=== PATIENT | female | born 1955 | race Caucasian/White ===

== ENCOUNTER 2017-07-16 06:39 | Day surgery (SDC) | payer MEDICARE, OTHER ==
[2017-07-16] VITALS (13 sets, daily range): BP systolic 87–109; BP diastolic 34–65
[~2017-07-16] VITALS: Ht 165.1 cm; Wt 54.4 kg
[~2017-07-16 06:39] MED LIST: AMPH10TA23 PO; CLON-528 PO; IBUP-24 PO; LEVO120C PO; OMEP20CA10 PO; SIMV20TA5 PO; ZIPR40CA2 PO
[2017-07-16 07:34] LABS: BASOPHILS # (AUTO) 0.2 X10'3 (0-0.2); BASOPHILS % (AUTO) 1.6 % (0-1); EOSINOPHILS # (AUTO) 0.1 X10'3 (0-0.9); EOSINOPHILS % (AUTO) 0.6 % (0-6); HEMATOCRIT 40.5 % (35.0-45.0); LYMPHOCYTES % (AUTO) 19.1 % (21-51); MEAN CORPUSCULAR HEMOGLOBIN 32.9 PG (27.0-31.0); MEAN CORPUSCULAR HGB CONC 34.6 % (33.0-36.5); MEAN PLATELET VOLUME 7.7 FL (7.4-10.4); MONOCYTES # (AUTO) 0.8 X10'3 (0-0.9); MONOCYTES % (AUTO) 7.1 % (2-12); NEUTROPHILS # (AUTO) 7.6 X10'3 (1.8-7.7); NEUTROPHILS % (AUTO) 71.6 % (42-75); PLATELET COUNT 237 X10'3 (140-440); RED BLOOD COUNT 4.26 X10'6 (4.20-5.60); RED CELL DISTRIBUTION WIDTH 13.2 % (11.5-14.5); WHITE BLOOD COUNT 10.6 X10'3 (4.5-11.0)
[2017-07-16 07:40] LABS: ALBUMIN 3.7 G/DL (3.4-5.0); ANION GAP 11 (8-16); BLOOD UREA NITROGEN 26 MG/DL (7-18); BUN/CREATININE RATIO 29.2 (6.6-38.0); CALCIUM 9.7 MG/DL (8.5-10.1); CHLORIDE 104 MMOL/L (99-107); CREATININE 0.89 MG/DL (0.40-0.90); GLUCOSE 111 MG/DL (70-104); SODIUM 143 MMOL/L (135-145); eGFR 64 ML/MIN
[2017-07-16] MEDS ORDERED: normal saline 1000ml 1,000 ML IV PRN (08:00)
[2017-07-16] MEDS ORDERED: pneumococcal 23-VAL P-sac vacc 25 mcg/0.5ml vial IMVAC ONE (08:05)
[2017-07-16] MEDS ORDERED: AMPH15TA2 PO (08:19)
[2017-07-16] MEDS ORDERED: ALPR-624 PO (08:19)
[2017-07-16] MEDS ORDERED: SERT100T PO (08:19)
[2017-07-16] MEDS ORDERED: METO5TAB85 PO (08:19)
[2017-07-16] MEDS ORDERED: SIMV40TA4 PO (08:19)
[2017-07-16] MEDS ORDERED: LIDOcaine 1%/PF (10mg/ml) 5ml vial SQ ONE (08:30)
[2017-07-16] MEDS ORDERED: heparin 1,000 UNITS/NS 500ml 500 ML ICATH ONE (08:30)
[2017-07-16] MEDS ORDERED: midazolam 2 mg/2 ml injection IV PRN (08:30)
[2017-07-16] MEDS ORDERED: fentaNYL/PF 50MCG/1 ML 2ML syringe IV PRN (08:30)
[2017-07-16] MEDS ORDERED: LIDOcaine 1%/PF (10mg/ml) 5ml vial ONE (08:43)
[2017-07-16] MEDS ORDERED: iohexol 300mg/ml 100ml inj. ONE (08:43)
[2017-07-16] MEDS ORDERED: midazolam 2 mg/2 ml injection ONE ×2 (08:48→09:14)
[2017-07-16] MEDS ORDERED: fentaNYL/PF 50MCG/1 ML 2ML syringe ONE ×2 (08:48→09:14)
[2017-07-16] MEDS ORDERED: heparin 1,000 UNITS/NS 500ml 500 ML ONE (08:49)
[2017-07-16] MEDS ORDERED: heparin 1,000unit/ml 10ml vial 0 ML ONE (09:33)
[2017-07-16] MEDS ORDERED: normal saline 1000ml 1,000 ML IV SCH (10:14)
[2017-07-16] MEDS ORDERED: clopidogrel 75mg tablet PO SCH (12:00)
== END 2017-07-16 14:40 | disposition home or self-care (01) ==
LOC: SSTAY O 06:39
PROVIDERS: ATTEND Radiology Diagnostic Radiology
DX: I70.211 Atherosclerosis of native arteries of extremities with intermittent claudication, right leg (principal); I74.5 Embolism and thrombosis of iliac artery; F41.9 Anxiety disorder, unspecified; F42.8 Other obsessive-compulsive disorder; J44.9 Chronic obstructive pulmonary disease, unspecified; F32.9 Major depressive disorder, single episode, unspecified; M19.90 Unspecified osteoarthritis, unspecified site; E78.5 Hyperlipidemia, unspecified; F17.210 Nicotine dependence, cigarettes, uncomplicated; Z23 Encounter for immunization; Z79.1 Long term (current) use of non-steroidal anti-inflammatories (NSAID); Z79.899 Other long term (current) drug therapy; Z98.890 Other specified postprocedural states
CPT/HCPCS: 36415; 37221; 75625; 80048; 85025; 90732; 99152; 99153; A6219; C1769; C1876; C1894; J1644; J2001; J2250; J3010; J7030; Q9967; A4620